=== PATIENT | female | born 1960 | race Caucasian/White ===

== ENCOUNTER 2021-09-05 11:07 | Emergency (ER) | payer BC ==
[2021-09-05 11:50] VITALS: BP 104/67; PULSE 96; RESP 16; TEMP 98.6; BMI 35.0
== END 2021-09-05 15:22 | disposition home or self-care (01) ==
LOC: JER 11:07
DX: U07.1 COVID-19 (principal); J06.9 Acute upper respiratory infection, unspecified; R05.9 Cough, unspecified; R09.81 Nasal congestion
CPT/HCPCS: 0241U-QW; 71046-TC-FY; 99284-25

== ENCOUNTER 2023-07-04 09:29 | Observation (INO) | payer BC ==
[2023-07-04] MEDS ORDERED: ONDANSETRON 4 MG/2 ML VIAL ONE (10:13)
[2023-07-04] MEDS ORDERED: MECLIZINE HCL 25 MG TABLET (FP) ONE (10:13)
[2023-07-04 10:42] LABS: BASO % 0.2 % (0-2.0); EOS % 0.2 % (0-4.5); HEMATOCRIT 35.8 % (32.4-45.2); HEMOGLOBIN 12.1 GM/dL (10.7-15.3); LYMPH % 10.3 % (8-40); MCH 28.1 pg (25.7-33.7); MCHC 33.9 g/dl (32.0-36.0); MEAN PLT VOLUME 7.9 fl (7.5-11.1); MONO % 5.3 % (3.8-10.2); PLATELET COUNT 213 10^3/uL (134-434); RBC 4.31 M/mm3 (3.60-5.2); RDW 12.7 % (11.6-15.6); WHITE BLOOD COUNT 9.3 K/mm3 (4.0-10.0)
[2023-07-04] MEDS: LACTATED RINGERS SOLUTION 1000 ML INFUS.BAG IV ONE (10:44)
[2023-07-04] MEDS: MECLIZINE HCL 25 MG TABLET (FP) PO ONE (10:44)
[2023-07-04] MEDS: ONDANSETRON 4 MG/2 ML VIAL IVPUSH ONE (10:44)
[2023-07-04 11:07] LABS: CHLORIDE 104 mmol/L (98-107); SODIUM 139 mmol/L (136-145)
[2023-07-04 11:10] LABS: CALCIUM 9.3 mg/dL (8.5-10.1)
[2023-07-04 11:11] LABS: ALBUMIN 3.6 g/dl (3.4-5.0); CO2 29 mmol/L (21-32); GLUCOSE,RANDOM 191 mg/dL (74-106); MAGNESIUM 2.1 mg/dL (1.8-2.4)
[2023-07-04 11:14] LABS: CREATININE 0.8 mg/dL (0.55-1.3); SGOT/AST 18 U/L (15-37); SGPT/ALT 27 U/L (13-61)
[2023-07-04 11:16] LABS: BILIRUBIN,TOTAL 0.4 mg/dL (0.2-1); TOT PROT 6.8 g/dl (6.4-8.2)
[2023-07-04 11:17] LABS: ALK PHOS 79 U/L (45-117)
[2023-07-04 11:40] LABS: ANION GAP 7 mmol/L (4-13); POTASSIUM 2.7 mmol/L (3.5-5.1)
[2023-07-04] MEDS ORDERED: POTASSIUM CHLORIDE ORAL LIQUID 20 MEQ/15 ML ONE (12:13)
[2023-07-04] MEDS: KCL 10 MEQ IVPB 10 MEQ/100 ML INFUS.BAG IVPB SCH (12:43)
[2023-07-04] MEDS: POTASSIUM CHLORIDE ORAL LIQUID 20 MEQ/15 ML PO ONE (12:43)
[2023-07-04] MEDS ORDERED: KCL 10 MEQ IVPB 10 MEQ/100 ML INFUS.BAG IVPB ONE ×2 (14:02→15:48)
[2023-07-04] MEDS: LACTATED RINGERS SOLUTION 1,000 ML/1,000 ML INFUS.BAG IV SCH ×2 (14:59→17:40)
[2023-07-04] MEDS ORDERED: ONDANSETRON 8 MG TABLET (FP) PO PRN (17:15)
[2023-07-04 17:27] LABS: PH,URINE 6.5 (5.0-8.0); URINE APPEARANCE CLEAR; URINE BILIRUBIN NEGATIVE (NEGATIVE); URINE COLOR YELLOW; URINE GLUCOSE (UA) NEGATIVE (NEGATIVE); URINE KETONE NEGATIVE (NEGATIVE); URINE LEUK ESTERASE NEGATIVE (NEGATIVE); URINE NITRITE NEGATIVE (NEGATIVE); URINE PROTEIN NEGATIVE (NEGATIVE); URINE UROBILINOGEN 0.2 mg/dL (0.2-1.0)
[2023-07-04 20:30] VITALS: BMI 40.1
[2023-07-04] MEDS: ROSUVASTATIN CA 20 MG TABLET PO SCH (21:28)
[2023-07-05] MEDS ORDERED: ACETAMINOPHEN 325 MG TABLET (FP) ONE (01:26)
[2023-07-05] MEDS: ACETAMINOPHEN 325 MG TABLET (FP) PO PRN (02:45)
[2023-07-05 07:37] LABS: BASO % 0.3 % (0-2.0); EOS % 0.2 % (0-4.5); HEMATOCRIT 31.6 % (32.4-45.2); HEMOGLOBIN 10.6 GM/dL (10.7-15.3); LYMPH % 18.6 % (8-40); MCH 28.2 pg (25.7-33.7); MCHC 33.7 g/dl (32.0-36.0); MEAN CELL VOLUME 83.7 fl (80-96); MEAN PLT VOLUME 8.8 fl (7.5-11.1); MONO % 6.6 % (3.8-10.2); NEUT % 74.3 % (42.8-82.8); PLATELET COUNT 199 10^3/uL (134-434); RBC 3.77 M/mm3 (3.60-5.2); RDW 12.3 % (11.6-15.6)
[2023-07-05 08:03] LABS: POTASSIUM 3.7 mmol/L (3.5-5.1)
[2023-07-05 08:10] LABS: CALCIUM 8.5 mg/dL (8.5-10.1)
[2023-07-05 08:11] LABS: BLOOD UREA NITROGEN 12.6 mg/dL (7-18)
[2023-07-05 08:14] LABS: CREATININE 0.5 mg/dL (0.55-1.3)
[2023-07-05] MEDS: LISINOPRIL 10 MG TABLET PO SCH (09:34)
[2023-07-05] MEDS: PANTOPRAZOLE 40 MG TABLET PO SCH (09:34)
[2023-07-05 10:05] VITALS: RESP 20
[2023-07-05 14:30] VITALS: BP 132/73; PULSE 86; TEMP 98.4
== END 2023-07-05 16:20 | disposition home or self-care (01) ==
LOC: JER 09:29 → JERBED 12:11 → J4W 18:12
PROVIDERS: ADMIT Family Medicine; ATTEND Family Medicine
PROC: 3E0337Z Introduction of Electrolytic and Water Balance Substance into Peripheral Vein, Percutaneous Approach (ICD-10-PCS; principal; 2023-07-04)
PROC: 3E033GC Introduction of Other Therapeutic Substance into Peripheral Vein, Percutaneous Approach (ICD-10-PCS; 2023-07-04)
DX: R42 Dizziness and giddiness (principal); R26.2 Difficulty in walking, not elsewhere classified; E87.6 Hypokalemia; R11.2 Nausea with vomiting, unspecified; I10 Essential (primary) hypertension; E78.5 Hyperlipidemia, unspecified; K21.9 Gastro-esophageal reflux disease without esophagitis
CPT/HCPCS: 0241U-QW; 36415; 70450-TC; 80048; 80053; 81003; 83036; 83735; 84443; 84484; 85025; 87086; 93005; 93010; 99285-25; G0378